=== PATIENT | female | born 1965 | race Caucasian/White ===

== ENCOUNTER 2018-11-24 07:32 | Emergency (ER) | payer OTHER | END 2018-11-24 09:36 | disposition home or self-care (01) | LOC: FTE 07:32 | DX: M19.90 Unspecified osteoarthritis, unspecified site (principal) | CPT/HCPCS: 72100; 73501; 73510; 73562-50; 99284-25 ==

== ENCOUNTER 2019-05-04 15:22 | Inpatient (IN) | payer OTHER ==
[2019-05-04] MEDS: ONDANSETRON 4 MG INJ IV ×4 (16:15→20:20)
[2019-05-04] MEDS: HYDROmorphONE 1 MG/ML SYG IV ×4 (16:15→20:20)
[2019-05-04] MEDS: SOD CHLORIDE 0.9% 1,000 ML IV ×2 (16:15→21:33)
[2019-05-04 16:18] LABS: ADD UMIC YES; UR ASCORBIC ACID NEGATIVE (NEGATIVE); UR BILIRUBIN (Dip) 1+ mg/dL (NEGATIVE); UR BLOOD (Dip) NEGATIVE (NEGATIVE); UR CLARITY SLIGHTLY CLOUDY (CLEAR); UR COLOR AMBER (YELLOW); UR GLUCOSE (Dip) NEGATIVE (NEGATIVE); UR KETONES (Dip) NEGATIVE (NEGATIVE); UR LEUKOCYTE ESTERASE (Dip) TRACE Leu/ul (NEGATIVE); UR MUCUS MANY /HPF (NONE SEEN); UR NITRITE (Dip) NEGATIVE (NEGATIVE); UR RBC 6 /HPF (0-5); UR SPECIFIC GRAVITY (Dip) 1.032 (1.003-1.030); UR SQUAMOUS EPITHELIAL CELL FEW /HPF (FEW); UR TOTAL PROTEIN (Dip) 1+ mg/dl (NEGATIVE); UR UROBILINOGEN (Dip) 1+ mg/dL (NEGATIVE); UR WBC 6 /HPF (0-5)
[2019-05-04] MEDS: SOD CHLORIDE 0.9% 100 ML (16:47)
[2019-05-04 17:41] LABS: ADD MAN DIFF? NO
[2019-05-04 18:23] LABS: ANION GAP 7 (5-13); BLOOD UREA NITROGEN 9 mg/dl (7-20); CARBON DIOXIDE 29 mmol/L (21-31); CHLORIDE 103 mmol/L (97-110); CREATININE 0.65 mg/dl (0.44-1.00); Estimated GFR > 60 mL/min (>60); GLUCOSE 159 mg/dl (70-220); POTASSIUM 3.6 mmol/L (3.5-5.1); SODIUM 139 mmol/L (135-144)
[2019-05-04 18:24] LABS: ALANINE AMINOTRANSFERASE 358 IU/L (13-69); ALBUMIN 4.2 g/dl (3.3-4.9); ALBUMIN/GLOBULIN RATIO 1.31; ALKALINE PHOSPHATASE 100 IU/L (42-121); ASPARTATE AMINO TRANSFERASE 434 IU/L (15-46); BILIRUBIN,INDIRECT 0.4 mg/dl (0-1.1); BILIRUBIN,TOTAL 0.4 mg/dl (0.2-1.3); TOTAL PROTEIN 7.4 g/dl (6.1-8.1)
[2019-05-04 19:05] LABS: LIPASE 27467 U/L (23-300)
[2019-05-04 20:12] LABS: WHITE BLOOD COUNT 5.8 10^3/ul (4.8-10.8)
[2019-05-04 20:12] LABS: BASOPHILS % 0.5 % (0.0-2.0); EOSINOPHILS % 1.2 % (0.0-7.0); HEMATOCRIT 35.7 % (37.0-47.0); HEMOGLOBIN 11.7 g/dl (12.0-16.0); LYMPHOCYTES % 22.1 % (15.0-51.0); MEAN CORPUSCULAR HEMOGLOBIN 30.2 pg (29.0-33.0); MEAN CORPUSCULAR HGB CONC 32.8 g/dl (32.0-37.0); MEAN CORPUSCULAR VOLUME 92.2 fl (82.0-101.0); MEAN PLATELET VOLUME 11.3 fl (7.4-10.4); MONOCYTES % 7.9 % (0.0-11.0); NEUTROPHILS % 68.1 % (39.0-77.0); PLATELET COUNT 280 10^3/UL (140-415); RED BLOOD COUNT 3.87 10^6/ul (4.20-5.40); RED CELL DISTRIBUTION WIDTH 14.8 % (11.5-14.5)
[2019-05-04 20:13] LABS: EOSINOPHILS # 0.1 10^3/ul (0.0-0.5); LYMPHOCYTES # 1.3 10^3/ul (0.8-2.9); MONOCYTE # 0.5 10^3/ul (0.3-0.9)
[2019-05-04] MEDS ORDERED: ACETAMINOPHEN 325 MG TAB PO (20:30)
[2019-05-04] MEDS ORDERED: ONDANSETRON 4 MG INJ IV ×2 (20:30→21:00)
[2019-05-04] MEDS ORDERED: SOD CHLORIDE 0.9% 1,000 ML IV (20:30)
[2019-05-04] MEDS ORDERED: BECLOMETHASONE DIPROPIONATE IH (21:00)
[2019-05-04] MEDS ORDERED: BISACODYL (EC) 5 MG TAB PO (21:00)
[2019-05-04] MEDS ORDERED: DOCUSATE SODIUM 100 MG CAP PO (21:00)
[2019-05-04] MEDS ORDERED: ALBUTEROL 18 GM INHALER INH (21:00)
[2019-05-04] MEDS ORDERED: [UNRECOGNIZED DRUG - OTHER] IH (21:00)
[2019-05-04] MEDS ORDERED: NACL 0.9% 3 ML SYG IV (21:00)
[2019-05-04] MEDS: GABAPENTIN 300 MG CAP PO (23:35)
[2019-05-04] MEDS: ATORVASTATIN 20 MG TAB PO (23:35)
[2019-05-05] MEDS ORDERED: ALBUTEROL HFA 8 GM INHALER INH (01:30)
[2019-05-05] MEDS: HYDROmorphONE 0.5 MG/0.5 ML SYG IV (03:23)
[2019-05-05] MEDS: SOD CHLORIDE 0.9% 1,000 ML IV ×3 (03:26→14:17)
[2019-05-05 05:06] LABS: ADD MAN DIFF? NO
[2019-05-05 05:22] LABS: WHITE BLOOD COUNT 6.3 10^3/ul (4.8-10.8)
[2019-05-05 05:22] LABS: BASOPHILS % 0.5 % (0.0-2.0); EOSINOPHILS # 0.1 10^3/ul (0.0-0.5); EOSINOPHILS % 1.1 % (0.0-7.0); HEMATOCRIT 31.9 % (37.0-47.0); HEMOGLOBIN 10.2 g/dl (12.0-16.0); LYMPHOCYTES # 1.6 10^3/ul (0.8-2.9); LYMPHOCYTES % 25.2 % (15.0-51.0); MEAN CORPUSCULAR HEMOGLOBIN 30.1 pg (29.0-33.0); MEAN CORPUSCULAR VOLUME 94.1 fl (82.0-101.0); MONOCYTE # 0.5 10^3/ul (0.3-0.9); MONOCYTES % 7.6 % (0.0-11.0); NEUTROPHIL # 4.1 10^3/ul (1.6-7.5); NEUTROPHILS % 65.4 % (39.0-77.0); PLATELET COUNT 238 10^3/UL (140-415); RED BLOOD COUNT 3.39 10^6/ul (4.20-5.40); RED CELL DISTRIBUTION WIDTH 15.4 % (11.5-14.5)
[2019-05-05 05:37] LABS: HEMOGLOBIN A1C 5.5 % (0-5.9)
[2019-05-05 05:38] LABS: INR 1.04; PARTIAL THROMBOPLASTIN TIME 21.8 Sec (23.0-35.0); PROTIME 13.7 Sec (11.9-14.9); PT RATIO 1.1
[2019-05-05 05:43] LABS: ETHANOL < 10.0 mg/dl (0-0)
[2019-05-05 05:45] LABS: IRON 53 ug/dl (35-150)
[2019-05-05 05:55] LABS: % IRON SATURATION 18 % SAT (22-52); TOTAL IRON BINDING CAPACITY 297 ug/dl (241-421)
[2019-05-05 06:12] LABS: ALANINE AMINOTRANSFERASE 241 IU/L (13-69); ALBUMIN 3.6 g/dl (3.3-4.9); ALBUMIN/GLOBULIN RATIO 1.24; ALKALINE PHOSPHATASE 80 IU/L (42-121); ANION GAP 3 (5-13); ASPARTATE AMINO TRANSFERASE 138 IU/L (15-46); BILIRUBIN,INDIRECT 0.4 mg/dl (0-1.1); BILIRUBIN,TOTAL 0.4 mg/dl (0.2-1.3); BLOOD UREA NITROGEN 7 mg/dl (7-20); CALCIUM 8.4 mg/dl (8.4-10.2); CARBON DIOXIDE 31 mmol/L (21-31); CHLORIDE 106 mmol/L (97-110); CHOL/HDL RATIO 3.5 RATIO; CHOLESTEROL 239 mg/dl (100-200); CREATININE 0.65 mg/dl (0.44-1.00); Estimated GFR > 60 mL/min (>60); GLUCOSE 99 mg/dl (70-220); HDL CHOLESTEROL 68 mg/dl (37-92); LDL CHOLESTEROL,CALCULATED 147 mg/dl; MAGNESIUM 2.1 mg/dl (1.7-2.5); POTASSIUM 4.1 mmol/L (3.5-5.1); SODIUM 140 mmol/L (135-144); TOTAL PROTEIN 6.5 g/dl (6.1-8.1); TRIGLYCERIDES 122 mg/dl (0-149)
[2019-05-05 06:16] LABS: LIPASE 3268 U/L (23-300)
[2019-05-05 06:20] LABS: FERRITIN 69.4 ng/ml (11.1-264.0)
[2019-05-05 07:13] LABS: THYROID STIMULATING HORMONE 0.506 MIU/L (0.465-4.680)
[2019-05-05] MEDS: ASPIRIN (EC) 81 MG TAB PO (10:19)
[2019-05-05] MEDS: PAROXETINE 10 MG TAB PO (10:19)
[2019-05-05] MEDS: GABAPENTIN 300 MG CAP PO ×3 (10:19→20:31)
[2019-05-05] MEDS ORDERED: MOMETASONE 0.24 GM INHALER INH (12:00)
[2019-05-05] MEDS: ACETAMINOPHEN 325 MG TAB PO (12:10)
[2019-05-05 15:12] LABS: HEPATITIS B SURFACE ANTIGEN NEGATIVE (NEGATIVE)
[2019-05-05] MEDS: MOMETASONE 0.24 GM INHALER INH (20:00)
[2019-05-06 04:58] LABS: ADD MAN DIFF? NO
[2019-05-06 05:20] LABS: BASOPHILS % 0.4 % (0.0-2.0); EOSINOPHILS # 0.1 10^3/ul (0.0-0.5); EOSINOPHILS % 2.2 % (0.0-7.0); HEMATOCRIT 33.8 % (37.0-47.0); HEMOGLOBIN 10.6 g/dl (12.0-16.0); LYMPHOCYTES # 1.9 10^3/ul (0.8-2.9); LYMPHOCYTES % 34.7 % (15.0-51.0); MEAN CORPUSCULAR HEMOGLOBIN 29.9 pg (29.0-33.0); MEAN CORPUSCULAR HGB CONC 31.4 g/dl (32.0-37.0); MEAN CORPUSCULAR VOLUME 95.2 fl (82.0-101.0); MEAN PLATELET VOLUME 11.2 fl (7.4-10.4); MONOCYTE # 0.5 10^3/ul (0.3-0.9); MONOCYTES % 9.5 % (0.0-11.0); PLATELET COUNT 262 10^3/UL (140-415); RED BLOOD COUNT 3.55 10^6/ul (4.20-5.40); RED CELL DISTRIBUTION WIDTH 15.5 % (11.5-14.5)
[2019-05-06 05:20] LABS: WHITE BLOOD COUNT 5.6 10^3/ul (4.8-10.8)
[2019-05-06 05:42] LABS: PHOSPHORUS 3.9 mg/dl (2.5-4.9)
[2019-05-06 05:42] LABS: MAGNESIUM 2.1 mg/dl (1.7-2.5)
[2019-05-06 05:52] LABS: ALANINE AMINOTRANSFERASE 164 IU/L (13-69); ALBUMIN 3.7 g/dl (3.3-4.9); ALBUMIN/GLOBULIN RATIO 1.23; ALKALINE PHOSPHATASE 79 IU/L (42-121); ANION GAP 5 (5-13); ASPARTATE AMINO TRANSFERASE 53 IU/L (15-46); BILIRUBIN,INDIRECT 0.2 mg/dl (0-1.1); BILIRUBIN,TOTAL 0.2 mg/dl (0.2-1.3); BLOOD UREA NITROGEN 11 mg/dl (7-20); CALCIUM 8.6 mg/dl (8.4-10.2); CARBON DIOXIDE 29 mmol/L (21-31); CHLORIDE 104 mmol/L (97-110); CREATININE 0.61 mg/dl (0.44-1.00); Estimated GFR > 60 mL/min (>60); GLUCOSE 109 mg/dl (70-220); POTASSIUM 4.3 mmol/L (3.5-5.1); SODIUM 138 mmol/L (135-144); TOTAL PROTEIN 6.7 g/dl (6.1-8.1)
[2019-05-06 06:03] LABS: LIPASE 534 U/L (23-300)
[2019-05-06] MEDS: PANTOPRAZOLE (EC) 40 MG TAB PO (06:36)
[2019-05-06] MEDS: SOD CHLORIDE 0.9% 1,000 ML IV (06:37)
[2019-05-06] MEDS: ASPIRIN (EC) 81 MG TAB PO (08:46)
[2019-05-06] MEDS: CLOPIDOGREL 75 MG TAB PO (08:47)
[2019-05-06] MEDS: GABAPENTIN 300 MG CAP PO (08:47)
[2019-05-06] MEDS: PAROXETINE 10 MG TAB PO (08:47)
[2019-05-06] MEDS: MOMETASONE 0.24 GM INHALER INH (09:04)
[2019-05-07 14:18] LABS: ANA SCREEN NEGATIVE (NEGATIVE)
[2019-05-08 12:52] LABS: MITOCHONDRIAL TB NEGATIVE (NEGATIVE); SMOOTH MUSCLE AB SCREEN POSITIVE (NEGATIVE); SMOOTH MUSCLE AB TITER 1:40 titer (<1:20)
[2019-05-09 06:28] LABS: HCVA NOTE QNS
== END 2019-05-06 12:04 | disposition home or self-care (01) | DRG 440 ==
LOC: E/R 15:22 → MS1 20:31
DX: K85.90 Acute pancreatitis without necrosis or infection, unspecified (principal); K80.20 Calculus of gallbladder without cholecystitis without obstruction; E66.9 Obesity, unspecified; F41.9 Anxiety disorder, unspecified; E78.5 Hyperlipidemia, unspecified; J45.909 Unspecified asthma, uncomplicated; Z79.82 Long term (current) use of aspirin; Z86.73 Personal history of transient ischemic attack (TIA), and cerebral infarction without residual deficits
CPT/HCPCS: 36415; 74177; 74181; 76705; 80053; 80061; 80307; 81001; 82306; 82728; 82787; 83036; 83540; 83690; 83735; 84100; 84443; 85025; 85610; 85730; 86038; 86255; 86803; 87340; 96361; 96374; 96375; 96376; 99285-25